=== PATIENT | male | born 1955 | race Caucasian/White ===

== ENCOUNTER 2021-12-26 20:51 | Emergency (ER) | payer OTHER ==
[2021-12-26 21:15] LABS: #Basophils 0.1 thou/uL (0.0-0.2); #Eosinphils 0.2 thou/uL (0.0-0.7); #Lymphocytes 2.7 thou/uL (1.20-3.40); #Monocytes 0.6 thou/uL (0.11-0.59); #Neutrophils 4.3 thou/uL (1.40-6.50); %Basophils 0.7 % (0.0-1.0); %Eosinophils 2.2 % (0.0-10.0); %Lymphocytes 34.6 % (21.0-51.0); %Monocytes 7.5 % (0.0-10.0); Hemoglobin 10.4 g/dL (14.0-18.0); Mean Corpuscular HGB CONC 32.7 g/dL (32.0-36.0); Mean Corpuscular Hemoglobin 30.1 pg (27.0-31.0); Mean Platelet Volume 9.1 fL (7.4-10.4); Platelet Count 184 thou/uL (130-400); RBC Distribution Width 11.9 % (11.5-14.5); Red Blood Cell (RBC) Count 3.45 mill/uL (4.70-6.10); White Blood Cell (WBC) Count 7.8 thou/uL (4.8-10.8)
[2021-12-26 21:29] LABS: ALT (SGPT) 16 U/L (8-55); AST (SGOT) 15 U/L (5-34); Albumin 3.6 g/dL (3.4-4.8); Alkaline Phosphatase 76 U/L (40-110); Anion Gap 15 mmol/L (10-20); BUN (Urea Nitrogen) 16 mg/dL (8.4-25.7); Bilirubin, Total 0.3 mg/dL (0.2-1.2); Calc. Creatinine Clearance 0 mL/min (70-130); Calcium 8.9 mg/dL (7.8-10.44); Carbon Dioxide 27 mmol/L (23-31); Chloride 98 mmol/L (98-107); Globulin 3.5 g/dL (2.4-3.5); Glucose 247 mg/dL (80-115); Lipase 21 U/L (8-78); Potassium 4.5 mmol/L (3.5-5.1); Protein, Total 7.1 g/dL (5.8-8.1); Sodium 135 mmol/L (136-145)
[2021-12-26] MEDS ORDERED: Mag-Al Plus 1200 MG/1200 MG/120 MG/30 ML UDCUP ONE (22:00)
[2021-12-26] MEDS ORDERED: Sodium Chloride 0.9% 500 ML ONE ×2 (22:05)
[2021-12-27 00:20] LABS: SARS-CoV-2 NAA Rapid Test Not Detected (NotDetected)
[2021-12-27 04:29] LABS: Troponin I Less than 0.010 ng/mL (< 0.028)
== END 2021-12-27 08:13 | disposition short-term general hospital (02) ==
LOC: EEVIPCON 20:51 → NAV ERS 20:51
DX: R07.89 Other chest pain (principal); D64.9 Anemia, unspecified; Z20.822 Contact with and (suspected) exposure to COVID-19; G47.30 Sleep apnea, unspecified; I10 Essential (primary) hypertension; E78.5 Hyperlipidemia, unspecified; E11.9 Type 2 diabetes mellitus without complications; E66.9 Obesity, unspecified; Z79.899 Other long term (current) drug therapy; Z79.4 Long term (current) use of insulin; Z79.84 Long term (current) use of oral hypoglycemic drugs
CPT/HCPCS: 71045; 71275; 80053; 83690; 84484; 85025; 85379; 93005; J7030; U0002

== ENCOUNTER 2022-09-14 18:07 | Emergency (ER) | payer OTHER ==
[2022-09-14 19:23] LABS: #Basophils 0.1 thou/uL (0.0-0.2); #Eosinphils 0.5 thou/uL (0.0-0.7); #Lymphocytes 3.5 thou/uL (1.20-3.40); #Monocytes 0.7 thou/uL (0.11-0.59); %Eosinophils 5.9 % (0.0-10.0); %Lymphocytes 40.1 % (21.0-51.0); %Monocytes 7.7 % (0.0-10.0); %Neutrophils 45.3 % (42.0-75.0); Hemoglobin 10.5 g/dL (14.0-18.0); Mean Corpuscular HGB CONC 32.2 g/dL (32.0-36.0); Mean Corpuscular Hemoglobin 30.5 pg (27.0-31.0); Mean Corpuscular Volume 94.8 fl (78.0-98.0); Platelet Count 166 10x3/uL (130-400); RBC Distribution Width 12.2 % (11.5-14.5); Red Blood Cell (RBC) Count 3.45 mill/uL (4.70-6.10); White Blood Cell (WBC) Count 8.8 10x3/uL (4.8-10.8)
[2022-09-14 19:39] LABS: ALT (SGPT) 13 U/L (8-55); AST (SGOT) 18 U/L (5-34); Albumin 3.7 g/dL (3.4-4.8); Alkaline Phosphatase 52 U/L (40-110); Anion Gap 16 mmol/L (10-20); BUN (Urea Nitrogen) 39 mg/dL (8.4-25.7); Bilirubin, Total 0.4 mg/dL (0.2-1.2); Calc. Creatinine Clearance 0 mL/min (70-130); Calcium 8.6 mg/dL (7.8-10.44); Carbon Dioxide 23 mmol/L (23-31); Chloride 102 mmol/L (98-107); Estimated GFR 43; Globulin 3.1 g/dL (2.4-3.5); Glucose 95 mg/dL (80-115); Lipase 14 U/L (8-78); Protein, Total 6.8 g/dL (5.8-8.1); Sodium 136 mmol/L (136-145)
[2022-09-14 21:11] LABS: SARS-CoV-2 NAA Rapid Test Not Detected (NotDetected)
[2022-09-14] MEDS ORDERED: Sodium Chloride 0.9% 1,000 ML ONE (21:19)
[2022-09-14 22:20] LABS: Troponin I Less than 0.010 ng/mL (< 0.028)
[2022-09-14] MEDS ORDERED: Ketorolac Tromethamine 30 MG/ML VIAL ONE (23:22)
== END 2022-09-14 23:30 | disposition short-term general hospital (02) ==
LOC: NAV ERS 18:07
DX: R07.89 Other chest pain (principal); N17.9 Acute kidney failure, unspecified; E11.22 Type 2 diabetes mellitus with diabetic chronic kidney disease; I12.9 Hypertensive chronic kidney disease with stage 1 through stage 4 chronic kidney disease, or unspecified chronic kidney disease; N18.9 Chronic kidney disease, unspecified; I25.10 Atherosclerotic heart disease of native coronary artery without angina pectoris; E78.00 Pure hypercholesterolemia, unspecified; Z79.899 Other long term (current) drug therapy; Z79.84 Long term (current) use of oral hypoglycemic drugs
CPT/HCPCS: 36416; 71045; 80053; 83690; 84484; 85025; 85379; 93005; 96374; J1885; J7050; U0002

== ENCOUNTER 2022-12-09 13:39 | Emergency (ER) | payer OTHER ==
[2022-12-09 15:19] LABS: #Eosinphils 0.2 thou/uL (0.0-0.7); #Lymphocytes 1.2 thou/uL (1.20-3.40); #Monocytes 0.5 thou/uL (0.11-0.59); #Neutrophils 6.3 thou/uL (1.40-6.50); %Basophils 0.3 % (0.0-1.0); %Eosinophils 2.6 % (0.0-10.0); %Lymphocytes 14.1 % (21.0-51.0); %Monocytes 6.2 % (0.0-10.0); %Neutrophils 76.8 % (42.0-75.0); Hemoglobin 10.3 g/dL (14.0-18.0); Mean Corpuscular HGB CONC 32.5 g/dL (32.0-36.0); Mean Corpuscular Hemoglobin 29.5 pg (27.0-31.0); Mean Corpuscular Volume 90.8 fl (78.0-98.0); Mean Platelet Volume 8.5 fL (7.4-10.4); Platelet Count 181 10x3/uL (130-400); RBC Distribution Width 11.8 % (11.5-14.5); Red Blood Cell (RBC) Count 3.49 mill/uL (4.70-6.10); White Blood Cell (WBC) Count 8.2 10x3/uL (4.8-10.8)
[2022-12-09 15:42] LABS: ALT (SGPT) 6 U/L (8-55); AST (SGOT) 12 U/L (5-34); Albumin 3.6 g/dL (3.4-4.8); Alkaline Phosphatase 66 U/L (40-110); Anion Gap 17 mmol/L (10-20); BUN (Urea Nitrogen) 19 mg/dL (8.4-25.7); Bilirubin, Total 0.6 mg/dL (0.2-1.2); Calc. Creatinine Clearance 0 mL/min (70-130); Calcium 9.1 mg/dL (7.8-10.44); Carbon Dioxide 22 mmol/L (23-31); Chloride 98 mmol/L (98-107); Estimated GFR 53; Globulin 4.1 g/dL (2.4-3.5); Glucose 381 mg/dL (80-115); Potassium 4.6 mmol/L (3.5-5.1); Protein, Total 7.7 g/dL (5.8-8.1); Sodium 132 mmol/L (136-145)
[2022-12-09] MEDS ORDERED: Clindamycin/D5W 600 mg/50 ml Premix Bag ONE (16:44)
[2022-12-09] MEDS ORDERED: Sodium Chloride 0.9% 500 ML ONE ×2 (16:44→19:10)
[2022-12-09] MEDS ORDERED: Insulin Regular 300 UNITS/3 ML VIAL ONE (17:03)
[2022-12-09 17:58] LABS: Bilirubin Negative (Negative); Blood, Urine Negative (Negative); Clarity Clear (Clear); Glucose, Urine (Dipstick) >=1000 mg/dL (Negative); Ketone, Urine Negative (Negative); Leukocyte Negative (Negative); Nitrite Negative (Negative); Protein, Urine (Dipstick) Negative (Neg-Trace); Specific Gravity, Urine 1.015 (1.005-1.030)
[2022-12-09] MEDS ORDERED: Acetaminophen 500 MG TAB ONE ×2 (18:46→18:47)
[2022-12-09] MEDS ORDERED: Vancomycin 1 GM VIAL ONE (19:10)
[2022-12-09 19:46] LABS: SARS-CoV-2 NAA Rapid Test Not Detected (NotDetected)
[2022-12-09] MEDS ORDERED: Carvedilol 25 MG TAB ONE (19:51)
[2022-12-09] MEDS ORDERED: DULoxetine 30 MG CAP ONE (19:55)
[2022-12-09] MEDS ORDERED: Atorvastatin Calcium 40 MG TAB PO SCH (21:00)
[2022-12-09] MEDS ORDERED: NPH, Human Insulin Isophane 300 UNITS/3 ML VIAL SC SCH (21:00)
[2022-12-09] MEDS ORDERED: Benztropine 1 MG TAB PO SCH (21:00)
[2022-12-09] MEDS ORDERED: Carvedilol 6.25 MG TAB PO SCH (21:00)
[2022-12-09] MEDS ORDERED: FLUPHENAZINE 2.5 MG TABLET PO SCH (21:00)
[2022-12-09] MEDS ORDERED: Terazosin HCl 1 MG CAP PO SCH (21:00)
[2022-12-09] MEDS ORDERED: Levofloxacin 500 mg/D5W 100 ml Premix Bag ONE (21:20)
== END 2022-12-10 01:10 | disposition short-term general hospital (02) ==
LOC: NAV ERS 13:39 → EEVIPCON 13:39 → NAV ERS 12-10 01:10
DX: L03.032 Cellulitis of left toe (principal); M86.8X7 Other osteomyelitis, ankle and foot; E11.9 Type 2 diabetes mellitus without complications; I10 Essential (primary) hypertension; Z79.899 Other long term (current) drug therapy; Z20.822 Contact with and (suspected) exposure to COVID-19
CPT/HCPCS: 36416; 80053; 81003; 85025; 86140; 87040; 87070; 87077; 87186; 87205; 96365; 96366; 96367; J1815; J1956; J3370; J3490; J7030; U0002